=== PATIENT | female | born 1965 | race Caucasian/White ===

== ENCOUNTER 2020-03-04 10:36 | Emergency (ER) | payer MEDICARE ==
[~2020-03-04] VITALS: Ht 170.2 cm; Wt 56.8 kg
[~2020-03-04 10:36] MED LIST: AMBIEN10 MG PO; COLACE100 MG PO; CYCLOBENZAPRINE10 MG PO; CYMBALTA60 MG PO; FLAGYL500 MG PO; HYDROCODONE-APA1 TAB PO; MILK OF MAGNESI30 ML PO; MIRALAX17 GM PO; XANAX1 MG PO
[2020-03-04 10:43] VITALS: Ht 170.2 cm; Wt 56.8 kg
[2020-03-04] MEDS ORDERED: METOPROLOL TART50 MG PO (10:45)
[2020-03-04] MEDS ORDERED: HYDROCHLOROTHIA50 MG PO (10:46)
[2020-03-04] MEDS ORDERED: ZANAFLEX4 MG PO (10:46)
[2020-03-04 11:16] LABS: HEMATOCRIT 39.9 % (36.0-48.0); HEMOGLOBIN 12.8 g/dL (12-16); MCH 31.3 pg (26.0-34.0); MCHC 32.1 g/dL (31.0-37.0); MCV 97.6 fL (80.0-100.0); MEAN PLATELET VOLUME 9.3 fL (7.4-10.4); PLATELET COUNT 226 10x3/uL (130-400); RBC 4.09 10x6/uL (4.00-5.40); RDW 13.2 % (11.5-14.5); WBC 4.4 10x3/uL (4.8-10.8)
[2020-03-04 11:26] LABS: CALC OSMOLALITY 284 mosm/kg (275-300); CALCIUM 8.2 mg/dL (8.5-10.1); CARBON DIOXIDE 29.1 mmol/L (21.0-32.0); CHLORIDE - SERUM 103 mmol/L (98-107); CREATININE - SERUM 0.6 mg/dL (0.6-1.3); GLUCOSE 110 mg/dL (74-106); POTASSIUM - SERUM 3.4 mmol/L (3.5-5.1); SODIUM 142 mmol/L (136-145); UREA NITROGEN 16 mg/dL (7-18); eGFR NON AFRICAN AMERICAN > 90 mL/min (90-120)
[2020-03-04 11:31] LABS: ALBUMIN 3.8 g/dL (3.4-5.0); ALKALINE PHOSPHATASE 112 U/L (30-120); ALT (SGPT) 41 U/L (10-68); BILIRUBIN - TOTAL 0.34 mg/dL (0.2-1.3); PROTEIN - SERUM 7.3 g/dL (6.4-8.2)
[2020-03-04] MEDS ORDERED: VOLTAREN25 MG PO (12:11)
[2020-03-04] MEDS ORDERED: ULTRAM50 MG PO (12:11)
[2020-03-04 13:07] LABS: ANISOCYTOSIS OCC; LYMPHOCYTES 53 % (15-50); MONOCYTES 6 % (2-11); NEUTROPHILS 41 % (40-80); PLATELET ESTIMATE NORMAL
[2020-03-04 13:09] LABS: ROULEAUX OCC
[2020-03-04] MEDS ORDERED: ZOFRAN ODT4 MG/UDTAB PO (14:04)
[2020-03-04] MEDS ORDERED: BENTYL 20 MG TA20 MG PO (14:04)
[2020-03-04 14:41] VITALS: BP 144/65
== END 2020-03-04 14:43 | disposition home or self-care (01) ==
LOC: D.ER 10:36
PROVIDERS: Emergency Medicine
DX: A08.4 Viral intestinal infection, unspecified (principal); E86.0 Dehydration; R11.10 Vomiting, unspecified; R51 Headache

== ENCOUNTER 2021-02-27 18:05 | Emergency (ER) | payer MEDICARE ==
[~2021-02-27] VITALS: Ht 170.2 cm; Wt 59.1 kg
[~2021-02-27 18:05] MED LIST changes: +BENTYL 20 MG TA20 MG PO; +HYDROCHLOROTHIA50 MG PO; +METOPROLOL TART50 MG PO; +ULTRAM50 MG PO; +VOLTAREN25 MG PO; +ZANAFLEX4 MG PO; +ZOFRAN ODT4 MG/UDTAB PO
[2021-02-27 18:31] VITALS: Ht 170.2 cm; Wt 59.1 kg
[2021-02-27] MEDS ORDERED: TOPROL XL100 MG PO (18:35)
[2021-02-27 21:17] VITALS: BP 108/79
[2021-02-27] MEDS ORDERED: HYDROCODON-ACE1 EAC7 PO (21:18)
== END 2021-02-27 21:17 | disposition home or self-care (01) ==
LOC: D.ER 18:05
DX: M25.571 Pain in right ankle and joints of right foot (principal); S82.51XA Displaced fracture of medial malleolus of right tibia, initial encounter for closed fracture; X58.XXXA Exposure to other specified factors, initial encounter

== ENCOUNTER → 2021-03-06 13:43 | Outpatient (CLI) | payer MEDICARE, MEDICAID ==
[2021-02-27 18:31] VITALS: BMI 20.4
[~2021-03-06 13:43] MED LIST changes: +HYDROCODON-ACE1 EAC7 PO; +TOPROL XL100 MG PO
== END | disposition home or self-care (01) ==
LOC: D.CT 13:43
PROVIDERS: ATTEND Clinical Nurse Specialist Family Health
DX: S82.91XA Unspecified fracture of right lower leg, initial encounter for closed fracture (principal); S92.901A Unspecified fracture of right foot, initial encounter for closed fracture; R60.0 Localized edema

== ENCOUNTER 2021-03-09 08:11 | Day surgery (SDC) | payer MEDICARE, MEDICAID ==
[~2021-03-09] VITALS: Ht 320 cm; Wt 60.3 kg
--- NOTE | ~2021-03-09 | OP ---
PATIENT NAME: ZOHAIB CASAS MEDICAL RECORD: [id number] :69 LOCATION:[facility] ADMISSION DATE: SURGEON: MIKE CURRIE MD DATE OF OPERATION: 03/09/2021 PREOPERATIVE DIAGNOSES: 1. Right medial malleolus fracture. 2. Right second, third, fourth metatarsal base fractures. 3. Right medial cuneiform fracture. POSTOPERATIVE DIAGNOSES: 1. Right medial malleolus fracture. 2. Right second, third, fourth metatarsal base fractures. 3. Right medial cuneiform fracture. PROCEDURE PERFORMED: 1. ORIF right medial malleolus. 2. ORIF right second metatarsal. 3. Closed management, right 3rd and 4th metatarsal fractures. 4. Closed management, right medial cuneiform fracture. INDICATIONS FOR THE PROCEDURE: Ms. Casas is a 55-year-old female who was walking at home and injured her right foot approximately 1 week ago. She reports she was stepping down the bed when she felt a pop in her foot and complained of immediate pain, swelling and inability to weightbear. She was seen in the Emergency Department where x-rays showed possible fractures of the ankle and foot. CT scans were obtained that confirmed a nondisplaced fracture of the medial malleolus. A comminuted fracture of the second metatarsal base. Nondisplaced fractures at the base of the 3rd and 4th metatarsals and a fracture at the superior distal border of the medial cuneiform. I talked with her about these injuries and need for operative repair. Arrangements were made for her to come to the operating room today. Risks, benefits and alternatives of surgery were discussed with the patient and consent was obtained. DESCRIPTION OF PROCEDURE: The patient was met in the holding area where her identity and confirmation of procedure was performed. The right lower extremity was marked. She was taken to the operating room where she was placed supine on the operating table, and anesthesia was administered. Tourniquet was applied to the right thigh and the right leg was prepped and draped in a sterile fashion. The patient received preoperative antibiotics and timeout was performed before initiating the case. On the initiation of the case, the leg was exsanguinated and the tourniquet was raised. Total tourniquet time was 70 minutes. We began with ORIF of the medial malleolus. Incision was made at the distal tip of the medial malleolus. We dissected down to the bone. The ankle appeared to have good alignment under fluoroscopy. A K-wire guidewire was then placed along the superior border of the medial malleolus. We confirmed its position in both the AP and lateral planes. We then placed a second K-wire/guidewire using the parallel guide posteriorly. The alignment was again confirmed. We were pleased with the K-wire position and two Arthrex 4.0 mm partially threaded cannulated screws were then placed. These were 54-mm in length. The near cortex was drilled and the screws were then advanced down over these guidewires until they were secure at the medial malleolus. Guidewires were then removed and final images of the ankle were obtained, showed good alignment and fixation of the medial malleolus. External rotation stress test was performed and did not show any evidence of medial clear space or syndesmotic widening. OPERATIVE REPORT [id number] ZOHAIB CASAS We then turned our attention to the foot. An incision was made in line with the second metatarsal beginning at its base and extending distally. We incised through the skin and subcutaneous tissues, dissected down to the periosteum/fascia over this area. There was significant bleeding in these tissues from the trauma. The periosteum was then incised and the fracture was identified. There was a comminuted fragment that was flipped superiorly impinging on the underlying tissues. This fragment was debrided as well as the fracture fragments beneath and then able to be reduced with a dental pick. A K-wire was used to temporarily hold this in place. An Arthrex 2.4 mm 3-hole T-plate was then positioned over the fragment and along the shaft of the second metatarsal. It was also held in place with the K-wire. We then placed a cortical screw through the proximal shaft hole of the plate to compress the plate to the bone. A locking screw was then placed through the fragment. Two more cortical screws were placed through the shaft of the plate and another cortical screw was placed through the more lateral T hole portion to fixate this proximal fragment. Images were obtained that showed good alignment and fixation of the second metatarsal. We elected to proceed with closed management for the other foot fractures. Wound was irrigated thoroughly with saline. The deep tissues were closed with Vicryl and the skin was closed with nylon. A sterile dressing was placed. The patient was placed into a well-padded splint, turned back over to anesthesia where she was awakened, extubated, and taken to recovery room in stable condition. POSTOPERATIVE PLAN: The patient is going to return home with her family today. She needs to remain nonweightbearing on the right lower extremity for at least 6 weeks. We will see her back in clinic in 2 weeks. We will also order home health to assist with mobilization. COMPLICATIONS: None. ESTIMATED BLOOD LOSS: 10 mL. ANESTHESIA: General with peripheral nerve block. TRANSINT:[id number] Voice Confirmation ID: [id number] DOCUMENT ID: [id number] MIKE CURRIE MD CC: [id number] DICTATION DATE: 03/09/21 1514 RISK ASSESSMENT CONSULTANT: 03/09/211921 [facility] 03/09/21 [id number] [place] [address]
[2021-03-09 08:32] LABS: BASOPHILS 0.5 % (0-2); EOSINOPHILS 0.9 % (0-7); HEMATOCRIT 37.1 % (36.0-48.0); HEMOGLOBIN 12.4 g/dL (12-16); IMMATURE GRANULOCYTES 0.2 % (0-5); LYMPHOCYTE ABS# 1.98 10x3/uL (1.18-3.74); LYMPHOCYTES 46.3 % (15-50); MCH 32.9 pg (26.0-34.0); MCHC 33.4 g/dL (31.0-37.0); MCV 98.4 fL (80.0-100.0); MEAN PLATELET VOLUME 9.3 fL (7.4-10.4); MONOCYTES 6.8 % (2-11); NEUTROPHIL ABS# 1.94 10x3/uL (1.56-6.13); NEUTROPHILS 45.3 % (40-80); RBC 3.77 10x6/uL (4.00-5.40); WBC 4.3 10x3/uL (4.8-10.8)
[2021-03-09 08:33] LABS: PLATELET COUNT 169 10x3/uL (130-400)
[2021-03-09 08:42] LABS: CALC OSMOLALITY 280 mosm/kg (275-300); CALCIUM 9.2 mg/dL (8.5-10.1); CARBON DIOXIDE 29.6 mmol/L (21.0-32.0); CHLORIDE - SERUM 103 mmol/L (98-107); CREATININE - SERUM 0.6 mg/dL (0.6-1.3); GLUCOSE 87 mg/dL (74-106); POTASSIUM - SERUM 3.3 mmol/L (3.5-5.1); SODIUM 143 mmol/L (136-145); UREA NITROGEN 5 mg/dL (7-18); eGFR NON AFRICAN AMERICAN > 90 mL/min (90-120)
[2021-03-09] MEDS ORDERED: PROTONIX40 MG PO (09:25)
[2021-03-09 09:41] VITALS: BP 140/83; Ht 320 cm; Wt 60.3 kg
--- NOTE | 2021-03-09 15:25 | NUR ---
DC TEACHING GIVEN TO PT AND MOM, VERBALIZED UNDERSTANDING WITH NO FURTHER QUESTIONS. PT VOIDED IN BEDPAN LARGE AMOUNT. 1540 PIV DC'D WITH CATHETER INTACT. MOM HELPING PT GET DRESSED. 1605 PT DC'D VIA WC BY THIS NURSE TO POV WITH MOM DRIVING, MOM HAD BELONGINGS AND DC PACKET.
== END 2021-03-09 16:05 | disposition home or self-care (01) ==
LOC: D.OPS 08:11
PROVIDERS: Anesthesiology; ATTEND Orthopaedic Surgery
DX: S82.51XA Displaced fracture of medial malleolus of right tibia, initial encounter for closed fracture (principal); S92.321A Displaced fracture of second metatarsal bone, right foot, initial encounter for closed fracture; S92.331A Displaced fracture of third metatarsal bone, right foot, initial encounter for closed fracture; S92.341A Displaced fracture of fourth metatarsal bone, right foot, initial encounter for closed fracture; S92.241A Displaced fracture of medial cuneiform of right foot, initial encounter for closed fracture; X58.XXXA Exposure to other specified factors, initial encounter